=== PATIENT | female | born 1950 | race Caucasian/White ===

== ENCOUNTER → 2016-08-26 | Outpatient (CLI) | payer OTHER | LOC: BMCIMAGING 15:19 | PROVIDERS: ATTEND Family Medicine | DX: S52.572A Other intraarticular fracture of lower end of left radius, initial encounter for closed fracture (principal); S69.92XA Unspecified injury of left wrist, hand and finger(s), initial encounter ==

== ENCOUNTER → 2016-08-27 | Outpatient (CLI) | payer OTHER | LOC: FIMAGING 13:53 | PROVIDERS: ATTEND Orthopaedic Surgery Hand Surgery | DX: S52.572D Other intraarticular fracture of lower end of left radius, subsequent encounter for closed fracture with routine healing (principal) ==

== ENCOUNTER 2016-08-28 09:56 | Day surgery (SDC) | payer OTHER ==
--- NOTE | 2016-08-27 14:43 | PDGENHP ---
History and Physical - Chief Complaint Left wrist pain - History of Present Illness Andria is a 65 yo female who presents with a new problem concerning her left wrist. She reports she initially injured her left wrist yesterday while hiking , when she fell on her left outstretched hand. She was initially seen at the [facility], where a distal radius fracture was identified. She was placed in a sugar-tong splint at that time, as well as given the use of a shoulder immobilizer sling for comfort. She reports she has been compliant with wearing these devices. She presents today for an orthopedic specialty evaluation based on the complex nature of her injury, which exceeded the capacity for her to be treated in house at [facility]. She reports her current pain is well controlled, and that she has no new onset n/t. She is accompanied by her for today's visit, and they have no additional concerns or complaints at this time. History Information - Allergies/Home Medication List Allergies/Adverse Reactions: No Known Allergies Allergy (Unverified 07/26/09 14:00) I have personally reviewed and updated: family history, medical history, social history, surgical history - Past Medical History Additional medical history: Past medical history is significant for hypothyroid , restless legs syndrome and sleep apnea. - Family History Positive for: non-pertinent Additional family history: No significant contributory family history was reported by the patient today. - Social History Smoking Status: Never smoked Alcohol Use: Rarely Drug Use: None Additional social history: Patient is a self-employed violinist Review of Systems ROS: 10pt was reviewed & negative except for what was stated in HPI & below Physical Exam Constitutional: no apparent distress Eyes: PERRL Ears, Nose, Mouth, Throat: moist mucous membranes, ears appear normal Cardiovascular: regular rate and rhythym Respiratory: no respiratory distress, clear to auscultation Gastrointestinal: soft, non-tender abdomen Skin: warm, normal color, no rashes or abrasions (Abrasion noted on the left elbow) Musculoskeletal: other (The left arm is in a sugar-tong splint. I have not completely removed the splint today. The injury at her wrist is closed; however , there are apparently some abrasions at her elbow that were not treated. Exposed digits are markedly swollen, but she does have pull-through of the profundus and superficialis flexor tendons of the fingers as well as the FPL tendon of the thumb. Intrinsic and extrinsic extensors have normal function, although reduced range due to the swelling of her digits. She has capillary refill of 2 seconds or less in the finger pulps. Normal light touch sensory examination in the radial, median, and ulnar nerve distributions.) Neurologic: AAOx3 Psychiatric: interacting appropriately, not anxious Lymph, Heme, Immunologic: no cervical LAD Lab Data & Imaging Review Imaging Review: Plain films show a heavily comminuted intra-articular distal radius fracture with dye punch components. It appears the patient has lost radial inclination and has lost some of her palmar tilt. Assessment & Plan Assessment: Left distal radius fracture, intra-articular, displaced Plan: This patient's case and radiographs were discussed with Dr. Arita in the office today, who also saw and examined the patient. After discussing treatment options with the patient, given the likelihood of a poor outcome if the fracture were to heal in this position, the patient has elected to proceed with a surgical intervention, and will be scheduled for an open reduction internal fixation of the left radius to be performed by Dr. Arita on 08/28/2016 at [facility]. All appropriate paperwork for [facility] was completed today. After a discussion of the risks and benefits of surgery, a signed, informed consent was obtained. A recuperative timeline was outlined with the patient. She was given a prescription for Percocet 5/325mg for post operative pain, as well as Zofran ODT 25mg for post operative nausea and vomiting. She will follow up in clinic 10-14 days postoperatively w/ Dr. Arita as an outpatient, or sooner with any additional concerns or complaints. All of the patient's questions have been answered, and her concerns addressed. She has relayed her understanding of the current care plan and education presented today, and appears pleased with the care she has received to date. It has been my pleasure to assist in the care of this patient.
[~2016-08-28 09:56] MED LIST: ceFAZolin 2 GM/DEXTROSE 100 ML IV ONE
[2016-08-28] MEDS ORDERED: BUPIVACAINE/EPI 0.25% 30 ML SDV ONE (10:02)
[2016-08-28] MEDS ORDERED: POLYMYXIN B SULFATE 500,000 UNIT/10 ML SYR IRR ONE (10:03)
[2016-08-28] MEDS ORDERED: BACITRACIN 50,000 UNITS/10 ML SYR IRR ONE (10:03)
[2016-08-28] MEDS ORDERED: LIDOCAINE 1% 2 ML INJ ID PRN (10:05)
[2016-08-28] MEDS ORDERED: LR 1,000 ML IV ONE (10:05)
[2016-08-28] MEDS ORDERED: LIDOCAINE 1% 2 ML INJ ONE (10:09)
[2016-08-28] MEDS ORDERED: CEFAZOLIN 2 GM/DEXTROSE/100 ML BAG IV ONE (10:09)
[2016-08-28] MEDS ORDERED: MIDAZOLAM 2 MG/2 ML VIAL IVP ONE (11:28)
--- NOTE | 2016-08-28 11:31 | PDANEPAE ---
ANE History of Present Illness 65 year old woman with fx left wrist ANE Past Medical History - Pulmonary History Hx Sleep Apnea: Yes - Surgical History Prior Surgeries: 1980 exp lap. 2010 BSO ANE Review of Systems Review of systems is: negative ANE Patient History - Allergies Allergies/Adverse Reactions: No Known Allergies Allergy (Unverified 07/26/09 14:00) - Home Medications Home Medications: Acetaminophen [Tylenol 325mg (*)] 650 mg PO HS PRN 08/28/16 [Last Taken 08/27/16 ] Compounded Estrogen Cream 1 kevan TP DAILY 08/28/16 [Last Taken Unknown] Compounded Progestorne Cream 1 kevan TP DAILY 08/28/16 [Last Taken Unknown] Compounded Testosterone Cream 1 kevan TP DAILY 08/28/16 [Last Taken Unknown] Cyanocobalamin [Vitamin B12 (*)] 5,000 mcg PO DAILY 08/28/16 [Last Taken Unknown ] Estradiol [Estrace Vaginal (*)] 1 kevan VG SUWE 08/28/16 [Last Taken Unknown] Herbals/Supplements -Info Only 1 ea PO DAILY 08/28/16 [Last Taken Unknown] Liothyronine Sodium [Cytomel 5 mcg (*)] 5 mcg PO DAILY 08/28/16 [Last Taken 07:00] Multivitamins [Multivitamin (*)] 1 each PO DAILY 08/28/16 [Last Taken Unknown] Neupro 1mg Patch 1 each TD HS 08/28/16 [Last Taken 08/27/16] Nitrofurantoin Macrocrystal [Macrodantin 100 mg] 100 mg PO DAILY PRN 08/28/16 [ Last Taken Unknown] Thyroid [[place] Thyroid 60 MG (*)] 90 mg PO DAILY 08/28/16 [Last Taken 08/28/16 07:00] Vitamin B Complex [B Complex] 1 each PO DAILY 08/28/16 [Last Taken Unknown] Zolpidem Tartrate [Ambien 5MG (*)] 5 mg PO HS PRN 08/28/16 [Last Taken 08/27/16] buPROPion SR [Wellbutrin 100mg SR (*)] 100 mg PO DAILY 08/28/16 [Last Taken ] traMADol [Ultram 50 mg (*)] 100 mg PO HS PRN 08/28/16 [Last Taken 08/27/16] - NPO status NPO Since - Liquids (Date): 08/27/16 NPO Since - Liquids (Time): 22:00 NPO Since - Solids (Date): 08/27/16 NPO Since - Solids (Time): 22:00 - Anes Hx Anes Hx: no prior problems - Smoking Hx Smoking Status: Never smoked - Alcohol Use Alcohol Use: Rarely ANE Labs/Vital Signs - Vital Signs Blood Pressure: 105/62 Heart Rate: 62 Respiratory Rate: 18 O2 Sat (%): 96 ANE Physical Exam - Airway Neck exam: FROM Mouth exam: normal dental/mouth exam - Pulmonary Pulmonary: no respiratory distress, clear to auscultation - Cardiovascular Cardiovascular: regular rate and rhythym - ASA Status ASA Status: II ANE Anesthesia Plan Anesthesia Plan: GA w LMA
--- NOTE | 2016-08-28 12:17 | PDHPUP ---
History & Physical Update H&P update statement: This history and physical update is based on an assessment of the patient which was completed after admission or registration (within 24 hours), but prior to the surgery/procedure. H&P update: H&P reviewed & patient examined, no change in patient's condition since H&P completed
[2016-08-28] MEDS ORDERED: fentaNYL 100 MCG/2 ML INJ ONE (12:27)
[2016-08-28] MEDS ORDERED: PROPOFOL 200 MG/20 ML VIAL ONE (12:28)
[2016-08-28] MEDS ORDERED: ONDANSETRON 4 MG/2 ML VIAL IVP PRN (13:46)
[2016-08-28] MEDS ORDERED: fentaNYL 100 MCG/2 ML INJ IVP PRN (13:46)
[2016-08-28] MEDS ORDERED: PROMETHAZINE HCL 25 MG/ML INJ IVP PRN (13:46)
[2016-08-28] MEDS ORDERED: NALOXONE HCL 0.4 MG/ML INJ IVP PRN (13:46)
--- NOTE | 2016-08-28 14:12 | POSTOPPROG ---
Post Op Note Date of Operation: 08/28/16 Surgeon: Art Arita Scientific Photographer: Zia Anesthesiologist: Bartolo Pre-op Diagnosis: left distal radius fracture Post-op Diagnosis: left distal radius fracture Procedure: open reduction internal fixation of left distal radius Findings: As above, please see full dictation for details Inf/Abcess present in the surg proc area at time of surgery?: No Depth: Deep Incisional (Fascial) EBL: Minimal Complications: none
[2016-08-28] MEDS ORDERED: OXYCODONE/APAP 5/325 TAB PO PRN (14:14)
--- NOTE | 2016-08-28 14:14 | POSTANESTH ---
Post Anesthetic Evaluation Cardiovascular Status: Normal, Stable Respiratory Status: Normal, Stable Level of Consciousness/Mental Status: Can Participate in Eval, Mildly Sleepy, Arousable Pain Control: Adequate, Prn Tx Ordered Nausea/Vomiting Control: Adequate, Prn Tx Ordered Complications Possibly Related to Anesthesia: None Noted
[2016-08-28 15:20] VITALS: PULSE 82; RESP 16
[2016-08-28 15:22] VITALS: TEMP 97.7
[2016-08-28 15:36] VITALS: BP 115/67; O2SAT 91
--- NOTE | 2016-08-28 19:38 | GOP ---
[f rep st] OPERATIVE REPORT DATE OF OPERATION: 08/28/2016 SURGEON: Art Arita MD TRIMMING INSPECTOR: Ernesto Lizarraga PA-C. PREOPERATIVE DIAGNOSIS: Left intra-articular multipart distal radius fracture. POSTOPERATIVE DIAGNOSIS: Left intra-articular multipart distal radius fracture. PROCEDURE PERFORMED: Open reduction, internal fixation of left intra-articular comminuted multipart distal radius fracture. FINDINGS: A Synthes variable angle volar locking plate was utilized. There were 5 transverse holes distally, all with locking screws. INDICATIONS: The patient is a 65-year-old woman who fell hiking several days ago. She sustained th e above injury. Due to the significant displacement of bone fragments and its intra-articular natur e, she is brought to the operating room for urgent definitive surgical management. DESCRIPTION OF PROCEDURE: After routinely checking the patient's identification and consent and the successful induction of LMA general anesthetic, the patient's left upper extremity was prepped and draped in usual standard fashion. A surgical time-out was completed. I exsanguinated the limb with an Esmarch wrap, and pneumatic tourniquet previously placed about the proximal left arm was inflate d to 250 mmHg. A longitudinal midline incision directly over the FCR tendon was carried sharply thr ough the skin. It was spread bluntly through the subcutaneous layer. I uncovered the FCR tendon an d then incised the fascia deep to the FCR tendon. I swept the contents of the carpal tunnel in an u lnar hodges direction. I dissected down to the pronator quadratus muscle. I incised sharply from the radial border of the radius and then transversely just at the watershed line. This allowed me to e xpose the crushed articular surface on the volar surface and a very widely displaced ulnar palmar fr agment. I reduced the ulnar palmar fragment first with longitudinal distraction as well as forcing the fragment distally and radially. This reduced the ulnar-sided fragment satisfactorily. I then o pened up the comminuted palmar cortex and elevated the articular surface from its punch compress ed location. I held this out to length while I replaced the dorsal cortex fragments. I then affixe d the plate to the shaft provisionally with a compression screw in the slotted portion of the plate. The screw holes were then sequentially filled with locking screws. The FluoroScan unit was used t o verify that the articular surface was appropriately repositioned and the fracture gaps were all cl osed down satisfactorily. Satisfied with this, the wound was irrigated thoroughly. The proximal sc rew holes were filled without incident using standard AO locking screw technique. The FluoroScan un it was used once again to verify that the screws were all appropriately positioned in the plate and the fracture was satisfactorily reduced. Satisfied with this, the wound was closed in layers. I wa s able to repair the pronator quadratus back radially and distally to cover the plate. I then let t he contents of the carpal tunnel and the volar forearm resume their anatomical positions. I closed the subcutaneous layer with 4-0 Vicryl and the skin with subcuticular 4-0 Monocryl followed by Steri -Strips. A sterile bulky dressing was applied followed by a plaster splint and compressive wrap. T he patient tolerated the procedure well. There were no complications. REASON FOR MARGARINE CHURN OPERATOR: A assistant manager of operations was medically necessary and required to complet e this case. The assistant nurse manager was used to decrease surgical time and also help in positioning the arm in 3-dimensional space including traction when necessary. It was also used to retract the contents of the carpal tunnel including the median nerve and protect the radial artery during the approach to the volar surface of the distal radius. /[id number]/MODL
== END 2016-08-28 15:58 | disposition home or self-care (01) ==
LOC: FSGY 09:56
PROVIDERS: ATTEND Orthopaedic Surgery Hand Surgery
PROC: 0PSJ04Z Reposition Left Radius with Internal Fixation Device, Open Approach (ICD-10-PCS; principal; 2016-08-28 11:30)
DX: S52.572A Other intraarticular fracture of lower end of left radius, initial encounter for closed fracture (principal); W01.0XXA Fall on same level from slipping, tripping and stumbling without subsequent striking against object, initial encounter; Y93.01 Activity, walking, marching and hiking
CPT/HCPCS: C1713; J0690; J2250; J2704; J3010

== ENCOUNTER → 2017-02-23 | Outpatient (CLI) | payer OTHER, MEDICARE | LOC: FIMAGING 09:30 | PROVIDERS: ATTEND Urology | DX: N28.9 Disorder of kidney and ureter, unspecified (principal); Z87.440 Personal history of urinary (tract) infections ==

== ENCOUNTER → 2017-03-12 | Outpatient (CLI) | payer OTHER, MEDICARE ==
[~2017-03-12] MED LIST changes: +IOPAMIDOL (ISOVUE-300) 100 ML BTL ONE; -ceFAZolin 2 GM/DEXTROSE 100 ML IV ONE
== END ==
LOC: FIMAGING 14:50
PROVIDERS: ATTEND Urology
DX: K57.30 Diverticulosis of large intestine without perforation or abscess without bleeding (principal); N32.89 Other specified disorders of bladder
CPT/HCPCS: 74178; Q9967

== ENCOUNTER 2017-05-31 22:12 | Emergency (ER) | payer OTHER, MEDICARE ==
--- NOTE | 2017-05-31 22:27 | EDPHY ---
H & P Stated Complaint: R FACIAL PAIN RADIATING R SHOULDER Time Seen by Provider: 05/31/17 22:26 HPI/ROS: HPI CHIEF COMPLAINT: Right jaw pain, right neck pain, chest pain, back pain HISTORY OF PRESENT ILLNESS: Patient is a 66-year-old female she is otherwise pretty healthy she has significant past medical history for thyroid disease, she presents emergency room with right jaw pain this started suddenly at rest this pain radiated from her right jaw down her right neck into her back and then down into her abdomen. This happened while at rest around 8:30 p.m.. She denies any vomiting or diarrhea. Denies diaphoresis. Denies shortness of breath. Denies pleuritic pain. She has never had this happen to her before. She states long time ago she had a cardiac arrhythmia that was evaluated but since then has no cardiovascular disease that she knows of. She does have a family history of cardiovascular disease. She does not smoke. She states symptoms lasted 30-45 minutes and then resolved on their own. She currently has no discomfort in the emergency room. She did take full-dose aspirin. Prior to arrival. She did state that maybe went to her epigastric and had some "heart burn" Past Medical History: Thyroid disease Past Surgical History: No recent surgery Social History: Lives locally, denies drugs alcohol tobacco. Family History: Noncontributory ROS REVIEW OF SYSTEMS: A comprehensive 10 point review of systems is otherwise negative aside from elements mentioned in the history of present illness. Exam Constitutional appears well nontoxic triage nursing summary reviewed, vital signs reviewed, awake/alert. Eyes normal conjunctivae and sclera, EOMI, PERRLA. HENT normal inspection, atraumatic, moist mucus membranes, no epistaxis, neck supple/ no meningismus, no raccoon eyes. Respiratory clear to auscultation bilaterally, normal breath sounds, no respiratory distress, no wheezing. Cardiovascular rate normal, regular rhythm, no murmur, no edema, distal pulses normal. Gastrointestinal soft, non-tender, no rebound, no guarding, normal bowel sounds, no distension, no pulsatile mass. Genitourinary no CVA tenderness. Musculoskeletal no midline vertebral tenderness, full range of motion, no calf swelling, no tenderness of extremities, no meningismus, good pulses, neurovascularly intact. Skin pink, warm, & dry, no rash, skin atraumatic. Neurologic awake, alert and oriented x 3, AAOx3, moves all 4 extremities equally, motor intact, sensory intact, CN II-XII intact, normal cerebellar, normal vision, normal speech. Psychiatric normal mood/affect. Heme/Lymph/Immune no lymphadenopathy. Differential diagnosis includes but is not limited to: ACS, atypical chest pain , pneumothorax, pneumonia, pulmonary embolism, aortic dissection, congestive heart failure, tumor, musculoskeletal pain, esophageal pain, GERD, peptic ulcer disease, pancreatitis Medical Decision Making: Plan for this patient IV establishment with full cardiac technologist obtain EKG, troponin, chest x-ray, blood work, D-dimer and re- evaluate. Re-evaluation: EKG interpretation by me on record in [employer] system. Impression time of EKG 2234, sinus rhythm rate of [address] elevation no ST depression no significant T-wave abnormalities. Unremarkable EKG. CT angiogram of the chest for aortic dissection/PE is negative for aortic dissection AAA or PE. Called to me by Dr. Genao. CT angiogram of the neck negative for carotid dissection or abnormality. Called to me by Dr. Pappas. 1240: Updated patient. Patient resting comfortably no acute distress does not have any chest pain shortness of breath. Plan for 4 hr repeat troponin EKG. If these are normal I will allow her to go home close follow up with Cardiology on outpatient basis. However I did discuss with her return precautions understands return emergency room if develops chest pain shortness of breath further symptoms. Her blood work has has been reviewed, negative troponin, negative nonischemic EKG, CT angiogram and CT angio of the neck and chest are negative. EKG interpretation by me on record in [employer] system. Impression this is a repeat EKG time a repeat EKG 2:30 a.m., sinus rhythm rate of [address] elevation or ST depression no significant T-wave abnormalities unchanged from previous EKG. 0331: Patient re-evaluated this time resting comfortably no acute distress. No chest pain or shortness of breath. Repeat troponin and EKG are unremarkable. She has never had chest pain or shortness of breath. CT angios are negative. Recommend close outpatient follow-up with Cardiology. Return precautions discussed. Understands return emergency room if develops any worsening chest pain shortness of breath. Source: Patient - Personal History Current Tetanus Diphtheria and Acellular Pertussis (TDAP): Yes - Medical/Surgical History Hx Asthma: No Hx Chronic Respiratory Disease: No Hx Diabetes: No Hx Cardiac Disease: No Hx Renal Disease: No Hx Cirrhosis: No Hx Alcoholism: No Hx HIV/AIDS: No Hx Splenectomy or Spleen Trauma: No Other PMH: L WRIST SX FROM FX, OVARIES REMOVED, HYPOTHYROIDISM - Social History Smoking Status: Former smoker Constitutional: Initial Vital Signs Temperature (C) 36.7 C 05/31/17 22:19 Heart Rate 66 05/31/17 22:19 Respiratory Rate 16 05/31/17 22:19 Blood Pressure 126/76 H 05/31/17 22:19 O2 Sat (%) 93 05/31/17 22:19 O2 Delivery Mode Room Air Allergies/Adverse Reactions: No Known Allergies Allergy (Verified 05/31/17 22:17) Home Medications: Medication Instructions Recorded Acetaminophen [Tylenol 325mg (*)] 650 mg PO HS PRN 08/28/16 Compounded Estrogen Cream 1 kevan TP DAILY 08/28/16 Compounded Progestorne Cream 1 kevan TP DAILY 08/28/16 Compounded Testosterone Cream 1 kevan TP DAILY 08/28/16 Cyanocobalamin [Vitamin B12 (*)] 5,000 mcg PO DAILY 08/28/16 Estradiol [Estrace Vaginal (*)] 1 kevan VG SUWE 08/28/16 Herbals/Supplements -Info Only 1 ea PO DAILY 08/28/16 Liothyronine Sodium [Cytomel 5 mcg 5 mcg PO DAILY 08/28/16 (*)] Multivitamins [Multivitamin (*)] 1 each PO DAILY 08/28/16 Neupro 1mg Patch 1 each TD HS 08/28/16 Thyroid [[place] Thyroid 60 MG (*)] 90 mg PO DAILY 08/28/16 Vitamin B Complex [B Complex] 1 each PO DAILY 08/28/16 Zolpidem Tartrate [Ambien 5MG (*)] 5 mg PO HS PRN 08/28/16 buPROPion SR [Wellbutrin 100mg SR 100 mg PO DAILY 08/28/16 (*)] traMADol [Ultram 50 mg (*)] 100 mg PO HS PRN 08/28/16 Medical Decision Making - Diagnostics Imaging Results: Imaging Impressions Chest X-Ray 05/31/17 22:37 Impression: Negative portable chest. Chest/Thorax CTA 05/31/17 23:21 Impression: Negative CT examination of the chest for acute pulmonary thromboembolic disease. Results called to Dr. Braulio Sam at 11:50 PM at the time of the interpretation. - Data Points Laboratory Results: Laboratory Results 05/31/17 22:30 05/31/17 22:30 06/01/17 05/31/17 05/31/17 02:44 22:30 22:30 WBC RBC Hgb Hct MCV MCH MCHC RDW Plt Count MPV Neut % (Auto) Lymph % (Auto) Phillips % (Auto) Eos % (Auto) Baso % (Auto) Nucleat RBC Rel Count Absolute Neuts (auto) Absolute Lymphs (auto) Absolute Monos (auto) Absolute Eos (auto) Absolute Basos (auto) Absolute Nucleated RBC Immature Gran % Immature Gran # PT 12.8 SEC SEC (12.0-15.0) INR 0.94 (0.83-1.16) APTT 22.9 SEC L SEC (23.0-38.0) D-Dimer < 0.27 ug/mLFEU ug/mLFEU (0.00-0.50) Sodium 141 mEq/L mEq/L (135-145) Potassium 3.9 mEq/L mEq/L (3.5-5.2) Chloride 102 mEq/L mEq/L (97-110) Carbon Dioxide 28 mEq/l mEq/l (22-31) Anion Gap 11 mEq/L mEq/L (8-16) BUN 34 mg/dL H mg/dL (7-23) Creatinine 0.8 mg/dL mg/dL (0.6-1.0) Estimated GFR > 60 Glucose 95 mg/dL mg/dL (70-100) Calcium 9.2 mg/dL mg/dL (8.5-10.4) Magnesium 2.1 mg/dL mg/dL (1.6-2.3) Total Bilirubin 0.3 mg/dL mg/dL (0.1-1.4) Conjugated Bilirubin 0.2 mg/dL mg/dL (0.0-0.5) Unconjugated Bilirubin 0.1 mg/dL mg/dL (0.0-1.1) AST 35 IU/L IU/L (14-46) ALT 48 IU/L IU/L (9-52) Alkaline Phosphatase 64 IU/L IU/L (38-126) Creatine Kinase 65 IU/L IU/L (0-156) CK-MB (CK-2) Fraction 1.29 ng/mL ng/mL (0.00-3.19) Troponin I < 0.012 ng/mL ng/mL < 0.012 ng/mL ng/mL (0.000-0.034) (0.000-0.034) NT-Pro-B Natriuret Pep 245 pg/mL H pg/mL (0-125) Total Protein 7.1 g/dL g/dL (6.3-8.2) Albumin 4.1 g/dL g/dL (3.5-5.0) Lipase 57 IU/L IU/L (23-300) 05/31/17 22:30 WBC 6.10 10^3/uL 10^3/uL (3.80-9.50) RBC 4.38 10^6/uL 10^6/uL (4.18-5.33) Hgb 15.0 g/dL g/dL (12.6-16.3) Hct 44.2 % % (38.0-47.0) MCV 100.9 fL H fL (81.5-99.8) MCH 34.2 pg H pg (27.9-34.1) MCHC 33.9 g/dL g/dL (32.4-36.7) RDW 12.3 % % (11.5-15.2) Plt Count 236 10^3/uL 10^3/uL (150-400) MPV 9.7 fL fL (8.7-11.7) Neut % (Auto) 40.3 % % (39.3-74.2) Lymph % (Auto) 38.9 % % (15.0-45.0) Phillips % (Auto) 15.1 % H % (4.5-13.0) Eos % (Auto) 4.4 % % (0.6-7.6) Baso % (Auto) 1.0 % % (0.3-1.7) Nucleat RBC Rel Count 0.0 % % (0.0-0.2) Absolute Neuts (auto) 2.46 10^3/uL 10^3/uL (1.70-6.50) Absolute Lymphs (auto) 2.37 10^3/uL 10^3/uL (1.00-3.00) Absolute Monos (auto) 0.92 10^3/uL H 10^3/uL (0.30-0.80) Absolute Eos (auto) 0.27 10^3/uL 10^3/uL (0.03-0.40) Absolute Basos (auto) 0.06 10^3/uL 10^3/uL (0.02-0.10) Absolute Nucleated RBC 0.00 10^3/uL 10^3/uL (0-0.01) Immature Gran % 0.3 % % (0.0-1.1) Immature Gran # 0.02 10^3/uL 10^3/uL (0.00-0.10) PT INR APTT D-Dimer Sodium Potassium Chloride Carbon Dioxide Anion Gap BUN Creatinine Estimated GFR Glucose Calcium Magnesium Total Bilirubin Conjugated Bilirubin Unconjugated Bilirubin AST ALT Alkaline Phosphatase Creatine Kinase CK-MB (CK-2) Fraction Troponin I NT-Pro-B Natriuret Pep Total Protein Albumin Lipase Medications Given: Discontinued Medications Sodium Chloride (Ns) 1,000 mls @ 0 mls/hr IV EDNOW ONE; Wide Open PRN Reason: Protocol Stop: 05/31/17 22:38 Last Admin: 05/31/17 22:42 Dose: 1,000 mls Departure - Departure Disposition: Home, Routine, Self-Care Condition: Good Instructions: Chest Pain (ED), Noncardiac Chest Pain (ED) Additional Instructions: 1. Return emergency room if you have worsening chest pain shortness of breath or not feeling well. 2. Additionally please follow up with Cardiology on outpatient basis for stress testing. 3. Return if any worsening symptoms questions or concerns. Referrals: Javid Daley MD [Primary Care Provider] - As per Instructions Johanna Werner MD [Medical Doctor] - As per Instructions
--- NOTE | 2017-05-31 22:36 | CPEKG ---
Heart Rate: 66 RR Interval: 909 P-R Interval: 120 QRSD Interval: 74 QT Interval: 384 QTC Interval: 403 P [place]: 55 QRS [place]: 9 T Wave [place]: 33 EKG Severity - NORMAL ECG - EKG Impression: SINUS RHYTHM Electronically Signed By: Hiro Dubois 02-Jun-2017 06:39:57
[2017-05-31] MEDS ORDERED: NS 1,000 ML IV ONE (22:37)
[2017-05-31 22:46] LABS: PLATELET COUNT 236 10^3/uL (150-400)
[2017-05-31 22:53] LABS: INR 0.94 (0.83-1.16); PROTIME(PATIENT) 12.8 SEC (12.0-15.0)
[2017-05-31 23:04] LABS: CREATINE KINASE 65 IU/L (0-156)
[2017-05-31] MEDS ORDERED: IOPAMIDOL (ISOVUE 370) 100 ML BTL IV ONE (23:23)
[2017-06-01] MEDS ORDERED: IOPAMIDOL (ISOVUE 370) 100 ML BTL IV ONE (00:10)
--- NOTE | 2017-06-01 02:33 | CPEKG ---
Heart Rate: 53 RR Interval: 1132 P-R Interval: 138 QRSD Interval: 70 QT Interval: 428 QTC Interval: 402 P [place]: 31 QRS [place]: 18 T Wave [place]: 39 EKG Severity - NORMAL ECG - EKG Impression: SINUS RHYTHM Electronically Signed By: Jonah Cutler 02-Jun-2017 11:28:31
[2017-06-01 03:36] VITALS: BP 100/69
== END 2017-06-01 03:36 | disposition home or self-care (01) ==
DX: R68.84 Jaw pain (principal); Z87.891 Personal history of nicotine dependence
CPT/HCPCS: 70498; 71045; 71275; 93005; 96360; 99285; Q9967

== ENCOUNTER 2018-04-27 14:38 | Emergency (ER) | payer OTHER, MEDICARE ==
[2018-04-27] MEDS ORDERED: NS 1,000 ML IV ONE (15:30)
[2018-04-27 16:14] LABS: PLATELET COUNT 244 10^3/uL (150-400)
[2018-04-27] MEDS ORDERED: ACETAMINOPHEN 500 MG TAB PO ONE (16:28)
--- NOTE | 2018-04-27 16:28 | EDPHY ---
H & P Time Seen by Provider: 04/27/18 15:19 HPI/ROS: HPI Fever this morning. Lesion under left axilla. 67-year-old female by private vehicle with her . This patient reports that she has had a open skin lesion under her left axilla since at least January. This is over a prior scar from a brachial plexus surgery. She reports that about 2 weeks ago she had a fever that resolved spontaneously but she when saw her microwave engineer here was going to put her on ciprofloxacin but there was an interaction flag with her methadone. She was then not placed on any antibiotic and the fever went away. She presents to the emergency department stating that she has felt febrile since this morning. She denies any other associated signs or symptoms. Please see review of systems for further details. This patient was sent from urgent care to evaluate for possible sepsis. ROS: Constitutional: As above, no chills. No weakness. Eyes: No discharge. No changes in vision. ENT: No sore throat. No nasal congestion or rhinorrhea. Respiratory: No cough. No shortness of breath. Cardiac: No chest pain, no palpitations. Gastrointestinal: No abdominal pain, no vomiting, no diarrhea. Genitourinary: No hematuria. No dysuria or increased frequency with urination. Musculoskeletal: No back pain. No neck pain. No myalgias or arthralgias. Skin: No rashes. As above. Neurological: No headache. No focal weakness or altered sensation. Past medical history: Oophorectomy, left wrist surgery, hypothyroidism. Chronic pain. Opiate dependent. Social history: No IV drugs or street drugs. Nonsmoker. Here with her . Physical Exam: General Appearance: Alert, she is not in distress. This patient is responding to questions appropriately and in full sentences. This patient appears well- hydrated and well-nourished. Eyes: Pupils equal and round no pallor or injection. No lid edema, erythema or injection. Respiratory: There are no retractions, lungs are clear to auscultation with good air movement bilaterally. Cardiovascular: Regular rate and rhythm. No murmur. Gastrointestinal: Abdomen is soft and nontender, no masses, bowel sounds normal. No focal tenderness at McBurney's point. No Foy sign. Neurological: Motor sensory function is grossly intact. Cranial nerves are normal. Gait is normal. Skin: Warm and dry, no rashes. She has a ulceration a little smaller than a dime, left posterior axilla. There is a small ring of erythema border ring 2 mm at most around it. No spreading erythema or edema. No fluctuance to indicate an abscess. No significant induration. It is not significantly tender on palpation. It has a purulent scab over it but no purulent drainage. Musculoskeletal: Neck is supple and nontender. Extremities are symmetrical. All joints range without pain or impingement. Psychiatric: No agitation. No depression. Database: EKG: Imaging: Chest x-ray PA and lateral; the cardiac mediastinal silhouette is unremarkable. No evidence of infiltrate or pneumothorax. Findings consistent with mild bronchitis. No other acute cardiopulmonary disease process noted. Interpreted by me. Procedures: Emergency department course: Triage vital signs reviewed. Temperature is 37.7 degrees. She is mildly tachycardic. Vital signs are otherwise unremarkable. An IV was placed. She was started on IV normal saline with 1 L to be given over the next hour. She will be given a g of Tylenol. Blood cultures, urinalysis and urine culture, chest x-ray to be obtained to evaluate for other potential sources of fever. The site described under her left axilla is not that impressive and I have doubts that this is her source of possible infection. However, if all else is unremarkable I will start her on IV Ancef in the emergency department and then we will consider disposition. Likely disposition will be disc charge on Keflex and follow up with Infectious Disease. Chest x-ray and urinalysis unremarkable. Recent vital signs reviewed. Patient is afebrile. Tachycardia resolved. At this time the only potential source for fever is this left axilla soft tissue lesion. Endocarditis is unlikely. All culture results are pending at this time. The patient will be given 2 g of IV Ancef in the emergency department. 5:20 p.m., the patient was re-evaluated, she is resting comfortably at this time. Vital signs reviewed and are normal. She is currently receiving 2 g of IV Ancef. Results of her diagnostic workup in the emergency department discussed. She feels comfortable going home with her and I feel she is safe for discharge. I will have her follow up with Infectious Disease for re- evaluation and further management. She is in agreement with this plan. Return to emergency department precautions reviewed. She will be prescribed Keflex on discharge. All of her questions were answered. She was discharged from the emergency department in good condition with her . 5:30 p.m., spoke with infectious disease specialist Dr. Linh Silva, case discussed in detail with her. They will contact this patient for follow-up in their office within the next 1-2 days. This information was passed along to the patient. Differential Diagnosis: The differential diagnosis on this patient includes but is not limited to soft tissue infection, viral syndrome. Endocarditis, pneumonia, UTI unlikely. This represents a partial list of diagnoses considered. These considerations are based on history, physical exam, past history, reassessment and diagnostic testing. Smoking Status: Former smoker Constitutional: Initial Vital Signs Temperature (C) 37.7 C 04/27/18 14:48 Heart Rate 107 H 04/27/18 14:48 Respiratory Rate 18 04/27/18 14:48 Blood Pressure 111/73 04/27/18 14:48 O2 Sat (%) 93 04/27/18 14:48 O2 Delivery Mode Room Air Allergies/Adverse Reactions: No Known Allergies Allergy (Verified 04/27/18 14:47) Home Medications: Medication Instructions Recorded Acetaminophen [Tylenol 325mg (*)] 650 mg PO HS PRN 08/28/16 Compounded Estrogen Cream 1 kevan TP DAILY 08/28/16 Compounded Progestorne Cream 1 kevan TP DAILY 08/28/16 Compounded Testosterone Cream 1 kevan TP DAILY 08/28/16 Cyanocobalamin [Vitamin B12 (*)] 5,000 mcg PO DAILY 08/28/16 Estradiol [Estrace Vaginal (*)] 1 kevan VG SUWE 08/28/16 Herbals/Supplements -Info Only 1 ea PO DAILY 08/28/16 Liothyronine Sodium [Cytomel 5 mcg 5 mcg PO DAILY 08/28/16 (*)] Multivitamins [Multivitamin (*)] 1 each PO DAILY 08/28/16 Neupro 1mg Patch 1 each TD HS 08/28/16 Thyroid [[place] Thyroid 60 MG (*)] 90 mg PO DAILY 08/28/16 Vitamin B Complex [B Complex] 1 each PO DAILY 08/28/16 Zolpidem Tartrate [Ambien 5MG (*)] 5 mg PO HS PRN 08/28/16 buPROPion SR [Wellbutrin 100mg SR 100 mg PO DAILY 08/28/16 (*)] traMADol [Ultram 50 mg (*)] 100 mg PO HS PRN 08/28/16 Cephalexin [Keflex (*)] 500 mg PO Q6 10 Days cap 04/27/18 Medical Decision Making - Diagnostics Imaging Results: Imaging Impressions Chest X-Ray 04/27/18 16:22 Impression: Suspect airways disease. - Data Points Laboratory Results: Laboratory Results 04/27/18 15:54 04/27/18 15:54 04/27/18 04/27/18 04/27/18 16:23 15:54 15:54 WBC 9.82 10^3/uL H 10^3/uL (3.80-9.50) RBC 4.45 10^6/uL 10^6/uL (4.18-5.33) Hgb 14.6 g/dL g/dL (12.6-16.3) Hct 44.3 % % (38.0-47.0) MCV 99.6 fL fL (81.5-99.8) MCH 32.8 pg pg (27.9-34.1) MCHC 33.0 g/dL g/dL (32.4-36.7) RDW 13.0 % % (11.5-15.2) Plt Count 244 10^3/uL 10^3/uL (150-400) MPV 9.6 fL fL (8.7-11.7) Neut % (Auto) 80.7 % H % (39.3-74.2) Lymph % (Auto) 10.6 % L % (15.0-45.0) [place] % (Auto) 7.8 % % (4.5-13.0) Eos % (Auto) 0.1 % L % (0.6-7.6) Baso % (Auto) 0.5 % % (0.3-1.7) Nucleat RBC Rel Count 0.0 % % (0.0-0.2) Absolute Neuts (auto) 7.92 10^3/uL H 10^3/uL (1.70-6.50) Absolute Lymphs (auto) 1.04 10^3/uL 10^3/uL (1.00-3.00) Absolute Monos (auto) 0.77 10^3/uL 10^3/uL (0.30-0.80) Absolute Eos (auto) 0.01 10^3/uL L 10^3/uL (0.03-0.40) Absolute Basos (auto) 0.05 10^3/uL 10^3/uL (0.02-0.10) Absolute Nucleated RBC 0.00 10^3/uL 10^3/uL (0-0.01) Immature Gran % 0.3 % % (0.0-1.1) Immature Gran # 0.03 10^3/uL 10^3/uL (0.00-0.10) VBG Lactic Acid Sodium 134 mEq/L L mEq/L (135-145) Potassium 4.2 mEq/L mEq/L (3.5-5.2) Chloride 104 mEq/L mEq/L (97-110) Carbon Dioxide 24 mEq/l mEq/l (22-31) Anion Gap 6 mEq/L mEq/L (6-14) BUN 30 mg/dL H mg/dL (7-23) Creatinine 0.7 mg/dL mg/dL (0.6-1.0) Estimated GFR > 60 Glucose 92 mg/dL mg/dL (70-100) Calcium 9.5 mg/dL mg/dL (8.5-10.4) Urine Color PALE YELLOW Urine Appearance CLEAR Urine pH 6.0 (5.0-7.5) Ur Specific [place] 1.002 (1.002-1.030) Urine Protein NEGATIVE (NEGATIVE) Urine Ketones NEGATIVE (NEGATIVE) Urine Blood NEGATIVE (NEGATIVE) Urine Nitrate NEGATIVE (NEGATIVE) Urine Bilirubin NEGATIVE (NEGATIVE) Urine Urobilinogen NEGATIVE EU EU (0.2-1.0) Ur Leukocyte Esterase NEGATIVE (NEGATIVE) Urine RBC 1-3 /hpf /hpf (0-3) Urine WBC 1-3 /hpf /hpf (0-3) Ur Epithelial Cells TRACE /lpf /lpf (NONE-1+) Urine Glucose NEGATIVE (NEGATIVE) 04/27/18 13:59 WBC RBC Hgb Hct MCV MCH MCHC RDW Plt Count MPV Neut % (Auto) Lymph % (Auto) [place] % (Auto) Eos % (Auto) Baso % (Auto) Nucleat RBC Rel Count Absolute Neuts (auto) Absolute Lymphs (auto) Absolute Monos (auto) Absolute Eos (auto) Absolute Basos (auto) Absolute Nucleated RBC Immature Gran % Immature Gran # VBG Lactic Acid 0.8 mmol/L mmol/L (0.7-2.1) Sodium Potassium Chloride Carbon Dioxide Anion Gap BUN Creatinine Estimated GFR Glucose Calcium Urine Color Urine Appearance Urine pH Ur Specific [place] Urine Protein Urine Ketones Urine Blood Urine Nitrate Urine Bilirubin Urine Urobilinogen Ur Leukocyte Esterase Urine RBC Urine WBC Ur Epithelial Cells Urine Glucose Medications Given: Discontinued Medications Acetaminophen (Tylenol) 1,000 mg PO EDNOW ONE Stop: 04/27/18 16:29 Last Admin: 04/27/18 16:41 Dose: 1,000 mg Sodium Chloride (Ns) 1,000 mls @ 0 mls/hr IV ONCE ONE; Wide Open PRN Reason: Protocol Stop: 04/27/18 15:31 Last Admin: 04/27/18 16:09 Dose: 1,000 mls Cefazolin Sodium/Dextrose (Ancef) 100 mls @ 200 mls/hr IV EDNOW ONE PRN Reason: Protocol Stop: 04/27/18 17:32 Last Admin: 04/27/18 17:09 Dose: 100 mls Departure - Departure Disposition: Home, Routine, Self-Care Clinical Impression: Fever Condition: Good Instructions: Cellulitis (ED), Fever in Adults (ED) Additional Instructions: Read and follow provided instructions. Follow-up with the [facility] for [facility]ious [facility], Dr. Silva or 1 of her partners, as discussed within the next 1-2 days. They will have access to the results of your blood cultures and urine culture which is not available at this time. Take antibiotic as prescribed through entire course of treatment. Return to the emergency department for worsening symptoms, fever, redness or swelling or pain involving her left armpit lesion or other serious concerns. Referrals: Linh Silva MD [Medical Doctor] - As per Instructions Prescriptions: Cephalexin [Keflex (*)] 500 mg PO Q6 10 Days cap
[2018-04-27 16:42] VITALS: BP 104/74
[2018-04-27] MEDS ORDERED: ceFAZolin 2 GM/DEXTROSE 100 ML IV ONE (17:03)
== END 2018-04-27 17:50 | disposition home or self-care (01) ==
DX: R50.9 Fever, unspecified (principal); L03.112 Cellulitis of left axilla; E03.9 Hypothyroidism, unspecified; E86.9 Volume depletion, unspecified
CPT/HCPCS: 71046; 96361; 96365; 99284; J0690